=== PATIENT | male | born 1950 | race Caucasian/White ===

== ENCOUNTER 2016-10-21 12:14 | Inpatient (IN) | payer OTHER ==
--- NOTE | 2016-10-21 12:39 | CPEKG ---
Heart Rate: 69 RR Interval: 870 P-R Interval: 160 QRSD Interval: 90 QT Interval: 416 QTC Interval: 446 P [place]: 40 QRS [place]: 25 T Wave [place]: 34 EKG Severity - NORMAL ECG - EKG Impression: SINUS RHYTHM Electronically Signed By: David Anthony 21-Oct-2016 12:49:04
--- NOTE | 2016-10-21 13:10 | EDPHY ---
H & P Time Seen by Provider: 10/21/16 12:37 HPI/ROS: CHIEF COMPLAINT: Left-sided chest pain HISTORY OF PRESENT ILLNESS: Patient napoleon Welsh and arrived there a week ago Friday and his symptoms started on . He describes left chest pain which is worse with deep breathing and kept him awake last week on night. Symptoms are sharp and not associated with cough and have been up and down. Symptoms do not radiate. No rash. Associated last night with a headache and some myalgias. No cough or hemoptysis. REVIEW OF SYSTEMS: Eye: no change in vision ENT: no sore throat Cardiac: HPI Pulmonary: HPI, not short of breath Abdomen: no vomiting, diarrhea, abdominal pain Musculoskeletal: no back pain or leg swelling Skin: no rash Neuro: no headache Constitutional: no fever : no urinary symptoms A comprehensive 10 point review of systems is otherwise negative aside from elements mentioned in the history of present illness. PAST MEDICAL HISTORY: Negative Social history: Recent travel as outlined in the HPI, nonsmoker General Appearance: Alert and conversant, cooperative. Eyes: No scleral icterus. ENT, Mouth: Normal mucous membranes. Respiratory: Normal respiratory effort, breath sounds equal, lungs are clear to auscultation. Decreased breath sounds bilateral from splinting. Cardiovascular: Regular rate and rhythm. Gastrointestinal: Abdomen is soft and non tender. Neurological: Alert and oriented x3. Normally conversant. Face symmetric, normal movement and sensation in all extremities. Skin: Warm and dry, no rashes. Musculoskeletal: No peripheral edema and no joint swelling. No calf tenderness. Psychiatric: Not agitated. Emergency Department course/MDM: Pretest probability for pulmonary embolism is low, more likely to be pleurisy or musculoskeletal. Plan for D-dimer, chest x-ray of negative and CT angiography of positive. 1330: D-dimer greater than 11, CT angio discussed and consented. 1420: Reviewed CT with the patient including possible right-sided lung mass. IV heparin discussed and consented. After discussion with hospitalist in anticipation of possible bronchoscopy procedure will start with unfractionated heparin. Smoking Status: Former smoker Constitutional: Initial Vital Signs Temperature (C) 36.6 C 10/21/16 12:17 Heart Rate 88 10/21/16 12:17 Respiratory Rate 20 10/21/16 12:17 Blood Pressure 123/93 H 10/21/16 12:17 O2 Sat (%) 95 10/21/16 12:17 O2 Delivery Mode Room Air Allergies/Adverse Reactions: No Known Allergies Allergy (Verified 10/21/16 12:15) Home Medications: Medication Instructions Recorded NK [No Known Home Meds] 01/05/16 Medical Decision Making - Diagnostics EKG Interpretation: 12-lead EKG interpreted by me; official reading is in trace master. My interpretation is sinus rhythm rate 69 and normal intervals and no acute ischemic changes. Imaging Results: Imaging Impressions Chest/Thorax CTA 10/21/16 13:29 Impression: 1. Small to moderate volume of acute thrombopulmonary embolic disease. 2. 3.5-cm right middle lobe mass and numerous bilateral pulmonary nodules. Differential diagnosis includes primary non-small cell lung cancer of the right middle lobe with metastatic nodules in the right and left lung versus metastatic disease of unknown origin. 3. 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 4. 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 5. Small left pleural effusion and left basilar atelectasis. Findings discussed with Emergency Department physician, Dr. David Anthony on October 21, 2016 at 1416 hours. Differential Diagnosis: Differential diagnosis considered for chest pain including but not limited to myocardial ischemia, aortic dissection, pericarditis, pulmonary embolus, chest wall pain, pleural inflammation and pulmonary infectious causes. Consult/Admit Bed Type: [place] [id number] Critical Care Time: Critical care time spent by me, Dr. Anthony, exclusively with the care of this patient was 30 minutes, exclusive of PA or PASSENGER SERVICE SUPERVISOR time and exclusive of separate procedures. The organ system at risk was pulmonary and I ordered multiple diagnostic studies, intravenous heparin bolus and drip, hospitalist consultation ; to stabilize the patient and prevent worsening of the patient's condition. - Data Points Laboratory Results: Laboratory Results 10/21/16 12:31 10/21/16 12:31 10/21/16 10/21/16 10/21/16 12:31 12:31 12:31 WBC 6.47 10^3/uL 10^3/uL (3.80-9.50) RBC 4.88 10^6/uL 10^6/uL (4.40-6.38) Hgb 15.3 g/dL g/dL (13.7-17.5) Hct 44.9 % % (40.0-51.0) MCV 92.0 fL fL (81.5-99.8) MCH 31.4 pg pg (27.9-34.1) MCHC 34.1 g/dL g/dL (32.4-36.7) RDW 12.3 % % (11.5-15.2) Plt Count 314 10^3/uL 10^3/uL (150-400) MPV 10.4 fL fL (8.7-11.7) Neut % (Auto) 77.9 % H % (39.3-74.2) Lymph % (Auto) 15.3 % % (15.0-45.0) [place] % (Auto) 5.6 % % (4.5-13.0) Eos % (Auto) 0.5 % L % (0.6-7.6) Baso % (Auto) 0.2 % L % (0.3-1.7) Nucleat RBC Rel Count 0.0 % % (0.0-0.2) Absolute Neuts (auto) 5.05 10^3/uL 10^3/uL (1.70-6.50) Absolute Lymphs (auto) 0.99 10^3/uL L 10^3/uL (1.00-3.00) Absolute Monos (auto) 0.36 10^3/uL 10^3/uL (0.30-0.80) Absolute Eos (auto) 0.03 10^3/uL 10^3/uL (0.03-0.40) Absolute Basos (auto) 0.01 10^3/uL L 10^3/uL (0.02-0.10) Absolute Nucleated RBC 0.00 10^3/uL 10^3/uL (0-0.01) Immature Gran % 0.5 % % (0.0-1.1) Immature Gran # 0.03 10^3/uL 10^3/uL (0.00-0.10) PT Cancelled INR Cancelled APTT Cancelled D-Dimer Sodium 140 mEq/L mEq/L (134-144) Potassium 4.2 mEq/L mEq/L (3.5-5.2) Chloride 105 mEq/L mEq/L (97-110) Carbon Dioxide 27 mEq/l mEq/l (22-31) Anion Gap 8 mEq/L mEq/L (8-16) BUN 19 mg/dL mg/dL (7-23) Creatinine 1.0 mg/dL mg/dL (0.7-1.3) Estimated GFR > 60 Glucose 148 mg/dL H mg/dL (70-100) Calcium 9.0 mg/dL mg/dL (8.5-10.4) 10/21/16 12:31 WBC RBC Hgb Hct MCV MCH MCHC RDW Plt Count MPV Neut % (Auto) Lymph % (Auto) [place] % (Auto) Eos % (Auto) Baso % (Auto) Nucleat RBC Rel Count Absolute Neuts (auto) Absolute Lymphs (auto) Absolute Monos (auto) Absolute Eos (auto) Absolute Basos (auto) Absolute Nucleated RBC Immature Gran % Immature Gran # PT 14.2 SEC SEC (12.0-15.0) INR 1.11 (0.83-1.16) APTT 30.8 SEC SEC (23.0-38.0) D-Dimer 11.12 ug/mLFEU H ug/mLFEU (0.00-0.50) Sodium Potassium Chloride Carbon Dioxide Anion Gap BUN Creatinine Estimated GFR Glucose Calcium Medications Given: Discontinued Medications Heparin Sodium (Porcine) (Heparin Injection) 0 unit IVP EDNOW ONE PRN Reason: Protocol Stop: 10/21/16 14:22 Last Admin: 10/21/16 14:41 Dose: 4,900 units Heparin Sodium (Porcine) (Heparin 50 Units/Ml (Premix)) 500 mls @ 0 mls/hr IV EDNOW ONE; Per Protocol PRN Reason: Protocol Stop: 10/21/16 14:22 Last Admin: 10/21/16 14:51 Dose: 500 mls Departure - Departure Disposition: [facility] Inpatient Acute Clinical Impression: Pulmonary embolism Qualifiers: Pulmonary embolism type: other Chronicity: acute Acute cor pulmonale presence: without acute cor pulmonale Qualified Code(s): I26.99 - Other pulmonary embolism without acute cor pulmonale Condition: Good
[2016-10-21 13:16] LABS: % IMMATURE GRANULYOCYTES 0.5 % (0.0-1.1); ABSOLUTE IMMATURE GRANULOCYTES 0.03 10^3/uL (0.00-0.10); ADD DIFF? NO; ADD MORPH? NO; ADD SCAN? NO; ATYPICAL LYMPHOCYTE FLAG 0 (0-99); FRAGMENT RBC FLAG 0 (0-99); HEMATOCRIT 44.9 % (40.0-51.0); HEMOGLOBIN 15.3 g/dL (13.7-17.5); LEFT SHIFT FLG 0 (0-99); LIPEMIA HEMOLYSIS FLAG 90 (0-99); MEAN CELL HEMOGLOBIN 31.4 pg (27.9-34.1); MEAN CELL HEMOGLOBIN CONCENTR. 34.1 g/dL (32.4-36.7); MEAN PLATELET VOLUME 10.4 fL (8.7-11.7); PLATELET CLUMPS FLAG 0 (0-99); PLATELET COUNT 314 10^3/uL (150-400); RED BLOOD CELL COUNT 4.88 10^6/uL (4.40-6.38); RED CELL DISTRIBUTION WIDTH 12.3 % (11.5-15.2)
[2016-10-21 13:25] LABS: ANION GAP 8 mEq/L (8-16); CARBON DIOXIDE 27 mEq/l (22-31); CHLORIDE 105 mEq/L (97-110); GLOMERULAR FILTRATION RATE > 60; GLUCOSE 148 mg/dL (70-100); POTASSIUM 4.2 mEq/L (3.5-5.2); SODIUM 140 mEq/L (134-144)
[2016-10-21] MEDS ORDERED: IOPAMIDOL (ISOVUE 370) 100 ML BTL IV ONE (13:33)
[2016-10-21] MEDS ORDERED: HEPARIN/DEXTROSE 500 ML IV ONE (14:21)
[2016-10-21] MEDS ORDERED: HEPARIN 10,000 UNIT/10 ML MDV IVP ONE (14:21)
[2016-10-21 14:49] LABS: APTT 30.8 SEC (23.0-38.0); INR 1.11 (0.83-1.16); PROTIME(PATIENT) 14.2 SEC (12.0-15.0)
[2016-10-21] MEDS ORDERED: ONDANSETRON DISINTEGRATING 4 MG TAB PO PRN (15:22)
[2016-10-21] MEDS ORDERED: oxyCODONE IR 5 MG TAB PO PRN (15:22)
[2016-10-21] MEDS ORDERED: ONDANSETRON 4 MG/2 ML VIAL IVP PRN (15:22)
[2016-10-21] MEDS ORDERED: TEARS/DEXTRAN 70/HYPROMELLOSE 15 ML OPHT.BTL EACHEYE PRN (15:26)
--- NOTE | 2016-10-21 15:33 | PDGENHP ---
History and Physical - Chief Complaint Acute chest pain - History of Present Illness PCP: Dr. Schmidt HPI: 66-year-old male presenting with acute chest pain characterized as pleuritic, exacerbated by deep inspiration, associated with cough, headache, myalgias with onset of symptoms 5 days ago and duration persistent thereafter. Location is mostly in the right anterior chest. Prior to his onset of symptoms , the patient had otherwise been feeling well and he had been symptom free. He has been able to exert himself without any chest pain or shortness of breath and in fact 6 days prior to this presentation, the patient had been planting 400 lb trees with his . Of note, approximately 1 week ago the patient drove from [place] to [place] and then from [facility] to [place] where he stayed with some friends for several days before driving back from [place] to [place]. During that time, the patient began experiencing the after mentioned symptoms and he thought that he may be coming down with the flu. On the day of presentation, his symptoms have been escalating and he has sought medical attention. He otherwise denies any lower extremity edema, denies any hematochezia, denies melena, denies constipation, denies fevers chills or weight loss. History Information - Allergies/Home Medication List Allergies/Adverse Reactions: No Known Allergies Allergy (Verified 10/21/16 12:15) Home Medications: Beta-Carotene(A) W-C & E/Min [Ocuvite] 1 tab PO DAILY 10/21/16 [Last Taken 10/21] Herbals/Supplements -Info Only 1 ea PO DAILY 10/21/16 [Last Taken Unknown] Tears/Dextran 70/Hypromellose [Natural Balance Tears (*)] 1 drop EACHEYE DAILY PRN 10/21/16 [Last Taken 10/21/16] I have personally reviewed and updated: family history, medical history, social history, surgical history - Past Medical History Additional medical history: Irritable bowel syndrome approximately 20 years ago , self resolved - Surgical History Additional surgical history: Last colonoscopy was approximately 8 years ago and was reportedly normal - Family History Additional family history: Patient's sister recently from breast cancer, grandfather had stomach cancer, no family history of venous thromboembolism - Social History Smoking Status: Former smoker (For approximately 1 year in his 20s) Alcohol Use: Occasionally (No history of alcohol withdrawal) Drug Use: None Additional social history: Normally physically active male, independent in ADLs , retired from [employer] Review of Systems ROS: 10pt was reviewed & negative except for what was stated in HPI & below Cardiac: Reports: chest pain Respiratory: Reports: cough Muscolosketal: Reports: other (Myalgias) Physical Exam Temp Pulse Resp BP Pulse Ox 36.6 C 88 20 123/93 H 95 10/21/16 12:17 10/21/16 12:17 10/21/16 12:17 10/21/16 12:10/21/16 12:17 Constitutional: no apparent distress, appears nourished, not in pain Eyes: PERRL, anicteric sclera, EOMI Ears, Nose, Mouth, Throat: moist mucous membranes, hearing normal, ears appear normal, no oral mucosal ulcers Cardiovascular: regular rate and rhythym, no murmur, rub, or gallop, No edema Respiratory: reduced air movement (Right posterior segment in the inferior area) , rhonchi (On inspiration in the right mid posterior segment), No expiratory wheeze, No bronchial breath sounds, No respiratory distress Gastrointestinal: normoactive bowel sounds, soft, non-tender abdomen, no palpable masses Genitourinary: no bladder fullness, no bladder tenderness Neurologic: AAOx3, sensation intact bilaterally, No weakness Psychiatric: interacting appropriately, not anxious, not encephalopathic, thought process linear Lymph, Heme, Immunologic: other (Palpable, 1-2 cm anterior cervical lymph nodes and submandibular lymph nodes bilaterally, palpable less than 1 cm left supraclavicular lymph node) Lab Data & Imaging Review 10/21/16 12:31 10/21/16 12:31 WBC 6.47 10^3/uL (3.80-9.50) 10/21/16 12:31 RBC 4.88 10^6/uL (4.40-6.38) 10/21/16 12:31 Hgb 15.3 g/dL (13.7-17.5) 10/21/16 12:31 Hct 44.9 % (40.0-51.0) 10/21/16 12:31 MCV 92.0 fL (81.5-99.8) 10/21/16 12:31 MCH 31.4 pg (27.9-34.1) 10/21/16 12:31 MCHC 34.1 g/dL (32.4-36.7) 10/21/16 12:31 RDW 12.3 % (11.5-15.2) 10/21/16 12:31 Plt Count 314 10^3/uL (150-400) 10/21/16 12:31 MPV 10.4 fL (8.7-11.7) 10/21/16 12:31 Neut % (Auto) 77.9 % (39.3-74.2) H 10/21/16 12:31 Lymph % (Auto) 15.3 % (15.0-45.0) 10/21/16 12: [place] % (Auto) 5.6 % (4.5-13.0) 10/21/16 12: Eos % (Auto) 0.5 % (0.6-7.6) L 10/21/16 12: Baso % (Auto) 0.2 % (0.3-1.7) L 10/21/16 12: Nucleat RBC Rel Count 0.0 % (0.0-0.2) 10/21/16 12:31 Absolute Neuts (auto) 5.05 10^3/uL (1.70-6.50) 10/21/16 12: Absolute Lymphs (auto) 0.99 10^3/uL (1.00-3.00) L 10/21/16 12:31 Absolute Monos (auto) 0.36 10^3/uL (0.30-0.80) 10/21/16 12:31 Absolute Eos (auto) 0.03 10^3/uL (0.03-0.40) 10/21/16 12:31 Absolute Basos (auto) 0.01 10^3/uL (0.02-0.10) L 10/21/16 12:31 Absolute Nucleated RBC 0.00 10^3/uL (0-0.01) 10/21/16 12: Immature Gran % 0.5 % (0.0-1.1) 10/21/16 12: Immature Gran # 0.03 10^3/uL (0.00-0.10) 10/21/16 12:31 PT 14.2 SEC (12.0-15.0) 10/21/16 12:31 INR 1.11 (0.83-1.16) 10/21/16 12:31 APTT 30.8 SEC (23.0-38.0) 10/21/16 12:31 D-Dimer 11.12 ug/mLFEU (0.00-0.50) H 10/21/16 12:31 Sodium 140 mEq/L (134-144) 10/21/16 12:31 Potassium 4.2 mEq/L (3.5-5.2) 10/21/16 12:31 Chloride 105 mEq/L (97-110) 10/21/16 12:31 Carbon Dioxide 27 mEq/l (22-31) 10/21/16 12:31 Anion Gap 8 mEq/L (8-16) 10/21/16 12:31 BUN 19 mg/dL (7-23) 10/21/16 12:31 Creatinine 1.0 mg/dL (0.7-1.3) 10/21/16 12:31 Estimated GFR > 60 10/21/16 12:31 Glucose 148 mg/dL (70-100) H 10/21/16 12:31 Calcium 9.0 mg/dL (8.5-10.4) 10/21/16 12:31 Visualized and Interpreted imaging results: Yes Interpretation: Chest CT demonstrating moderate size right effusion with peripheral 3 x 3.5 cm mass, bilateral segmental pulmonary emboli Visualized and Interpreted EKG results: Yes EKG Interpretation: Positive for: other (Normal sinus rhythm) Assessment & Plan Assessment: 58-year-old male presents with acute bilateral pulmonary emboli and new diagnosis of lung mass with pleural effusion Plan: 1. Pulmonary emboli. Acute, new problem this provider, further workup indicated. D-dimer 11, subsegmental pulmonary emboli bilaterally on chest CT angiogram, most likely secondary to underlying malignancy and recent prolonged travel. -get lower extremity ultrasounds to evaluate for DVT and ongoing source -get trop/BNP to ensure no right heart strain necessitating Echo/RVSP measurement -discussed with Dr. David Anthony, we have agreed to place the patient on heparin drip so that it can be discontinued prior to diagnostic biopsy procedure -will most likely be transitioned to either Lovenox or DOAC prior to discharge 2. Suspected malignancy, lung mass. Acute, new problem this provider, further workup indicated. Peripheral lesion would be most readily accessed by CT- guided biopsy, per discussion with Dr. Balwinder Ram -patient has what appears to be lymphangitic spread on his chest CT, and it is possible that this is stage IV malignancy -will arrange for CT-guided biopsy through Radiology (Dr. Hernandez to perform in AM , holding hep gtt prior to procedure) -will perform staging CT of the abdomen and pelvis -have discussed with Dr. Puri, oncology consultation appreciated 3. Suspected malignant effusion. Acute, right side, most likely not contributing to patient's current symptoms and does not require therapeutic drainage at this time per conversation with Dr. Ram -if the patient requires therapeutic drainage in the future, can be pursued through Radiology Diet. Reg, NPO after MN Prophylaxis. High risk patient, heparin drip Code. Full Disposition. Anticipated discharge is 10/22/2016, pending further workup as outlined above. Greater than 70 minutes spent with patient, greater than 50% time spent counseling regarding the above as well as coordinating his care.
[2016-10-21 16:22] LABS: TROPONIN I < 0.012 ng/mL (0-0.034)
[2016-10-21] MEDS ORDERED: IOPAMIDOL (ISOVUE-300) 100 ML BTL IV ONE (17:55)
[2016-10-21] MEDS: ACETAMINOPHEN 325 MG TAB PO PRN (20:38)
[2016-10-21] MEDS: ACETAMN/DIPHENHYDRAMINE 500/25MG TAB PO PRN (20:48)
[2016-10-21] MEDS: HEPARIN 10,000 UNIT/10 ML MDV IVP PRN (21:29)
[2016-10-21 22:55] LABS: INR 1.15 (0.83-1.16); PROTIME(PATIENT) 14.6 SEC (12.0-15.0)
[2016-10-21 22:57] LABS: APTT 67.1 SEC (23.0-38.0)
[2016-10-22 03:58] LABS: % IMMATURE GRANULYOCYTES 0.6 % (0.0-1.1); ABSOLUTE IMMATURE GRANULOCYTES 0.03 10^3/uL (0.00-0.10); ADD DIFF? NO; ADD MORPH? NO; ADD SCAN? NO; ATYPICAL LYMPHOCYTE FLAG 0 (0-99); FRAGMENT RBC FLAG 0 (0-99); HEMATOCRIT 38.9 % (40.0-51.0); HEMOGLOBIN 13.4 g/dL (13.7-17.5); LEFT SHIFT FLG 0 (0-99); LIPEMIA HEMOLYSIS FLAG 90 (0-99); MEAN CELL HEMOGLOBIN 31.6 pg (27.9-34.1); MEAN CELL HEMOGLOBIN CONCENTR. 34.4 g/dL (32.4-36.7); MEAN CELL VOLUME 91.7 fL (81.5-99.8); MEAN PLATELET VOLUME 10.2 fL (8.7-11.7); PLATELET CLUMPS FLAG 0 (0-99); PLATELET COUNT 252 10^3/uL (150-400); RED BLOOD CELL COUNT 4.24 10^6/uL (4.40-6.38); RED CELL DISTRIBUTION WIDTH 12.5 % (11.5-15.2)
[2016-10-22 04:04] LABS: ALANINE AMINOTRANSFERASE 40 IU/L (21-72); ALBUMIN 2.9 g/dL (3.5-5.0); ALKALINE PHOSPHATASE 69 IU/L (38-126); ANION GAP 6 mEq/L (8-16); ASPARTATE AMINOTRANSFERASE 23 IU/L (17-59); BILIRUBIN,TOTAL 0.7 mg/dL (0.1-1.4); CALCIUM 8.3 mg/dL (8.5-10.4); CARBON DIOXIDE 23 mEq/l (22-31); CHLORIDE 110 mEq/L (97-110); GLOMERULAR FILTRATION RATE > 60; GLUCOSE 94 mg/dL (70-100); POTASSIUM 4.3 mEq/L (3.5-5.2); SODIUM 139 mEq/L (134-144); TOTAL PROTEIN 5.8 g/dL (6.3-8.2)
[2016-10-22 04:15] LABS: TROPONIN I < 0.012 ng/mL (0-0.034)
[2016-10-22] MEDS: HEPARIN/DEXTROSE 500 ML IV SCH (06:29)
[2016-10-22] MEDS ORDERED: Herbals/Supplements -Info Only PO SCH (09:00)
--- NOTE | 2016-10-22 09:10 | GCON ---
[f rep st] CONSULTATION MEDICAL ONCOLOGY CONSULTATION DATE OF CONSULTATION: 10/22/2016 REFERRING PHYSICIAN: Alfredo Page MD REASON FOR CONSULTATION: Right middle lobe lung mass with pleural effusion and multiple nodules in both lungs. RECOMMENDATIONS: 1. Agree with percutaneous biopsy of the 3.5 cm right middle lobe mass, which is fairly peripheral in nature. 2. If additional tissue is needed, there is a suspicious lymph node in his left supraclavicular are a that may be excised and sent for analysis. 3. Depending on the diagnosis, we will need to look for tank wagon driver mutations if this is a non-small shari l lung cancer. Specifically, would be looking for EGFR, ALK, ROS-1 mutations, as well as assessing his PD-L1 status to guide for future therapy. 4. I do an MRI of his brain for staging evaluation. 5. Check CEA. 6. Agree with treatment of his pulmonary emboli as you are doing. He will likely need long-term an ticoagulation because of his malignancy and the potentially life-threatening nature of his venous th romboembolism and pulmonary embolism. 7. Further treatment options will be discussed with the patient once additional staging and tissue diagnosis is obtained. 8. PET-CT scan as an outpatient for staging. ASSESSMENT: This 66-year-old white male was in his usual state of health until a week or so prior t o admission. He and his went on a long car trip from here to [place], where they have a home and then to [place] to visit friends. On the way back, he began to have pleuritic chest pain, and not feel well. He said he could not get comfortable. Upon his return home, he sought medical atten tion with his primary care physician, Dr. Schmidt. Because of his symptoms, he underwent further eval uation and was found to have bilateral lower extremity DVTs and pulmonary emboli. In addition, he w as found to have a 3.5 cm mass in the right middle lobe, as well as a fairly large right pleural eff usion, and a small left pleural effusion. The 3.5 cm mass in the right middle lobe is very peripher al and we biopsied that today. We do not have a tissue diagnosis yet. Of note, on his CT scan ther e is concern for lymphangitic spread and multiple nodules in both lungs. The patient has had no capital B symptoms. He does have a minor smoking history for approximately 1 -1/2 years. 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 The most likely diagnosis at this time is a non-small cell carcinoma of the right lung. This will n eed to be proven with biopsy; however. Other possibilities exist including lymphoma, melanoma, etc. ; however, I think these are much less likely. If this does returns supervisor to be non-small cell carcinoma of the lung, the question will be whether he has a tank wagon driver mutation or not, to see if he is eligible for targeted therapy or to see whether he has PD-L1 positivity. If he does have PD-L1 positivity, then he may be a candidate for primary therapy with either Keytruda or Opdivo. I did discuss with the patient that this may indeed be stage IV disease based on his current CT. I do not yet have a good handle on prognosis, because I think there is too much information still up i n the air. In addition for staging purposes, he will need an MRI of his brain and PET-CT scan. The PET-CT scan will likely occur as an outpatient. HISTORY OF PRESENT ILLNESS: Please see assessment. PAST MEDICAL HISTORY: Fairly unremarkable otherwise. He did have irritable bowel syndrome approxim ately 20 years ago, which has not been an issue recently. SURGICAL HISTORY: Fairly unremarkable. He apparently did have a colonoscopy approximately 8 years ago. FAMILY HISTORY: Remarkable for breast cancer, as well as gastric cancer. There is no family histor y of VTE. SOCIAL HISTORY: The patient drinks alcohol occasionally. 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 REVIEW OF SYSTEMS: Remarkable for pleuritic chest pain, shortness of breath, generalized discomfort . He has had no capital B symptoms. He reports no nausea or vomiting. Reports no unusual masses o r lymphadenopathy. Ten systems reviewed otherwise unremarkable. PHYSICAL EXAMINATION: GENERAL: Reveals an alert, oriented, white male, in no acute distress. HEEN T: Shows that he does have a 0.5 cm firm mobile lymph node in his left supraclavicular area that is suspicious. LUNGS: Show diminished breath sounds at the bases. CARDIAC: Shows regular rhythm. ABDOMEN: Shows active bowel sounds. No obvious hepatosplenomegaly is noted. He has a soft abdomen . Peripheral LYMPH NODE EXAM IN ADDITION TO HIS LEFT NECK: Shows no significant palpable adenopath y in his axilla bilaterally, as well as he does have normal shotty lymph nodes in his groin bilatera lly. EXTREMITIES: He has no calf tenderness or swelling bilaterally. LABORATORY EXAM: CBC shows a white count of 5.23 with a hemoglobin of 13.4, and a platelet count of 252,000. His chemistries show a low albumin of 2.9, and total protein of 5.8, creatinine normal at 1.0, and sodium of 139. His alkaline phosphatase is normal at 69. His SGOT and SGPT are normal. Total bilirubin is normal at 0.7. Thank you very much for allowing us to participate in this pleasant gentleman's workup and care. We look forward to assisting with his management during the hospitalization and an afterwards. /[id number]/MODL
[2016-10-22] MEDS ORDERED: NALOXONE HCL 0.4 MG/ML INJ ONE (10:48)
[2016-10-22] MEDS ORDERED: FLUMAZENIL 0.5 MG/5 ML MDV IVP ONE (10:48)
[2016-10-22] MEDS ORDERED: MIDAZOLAM 2 MG/2 ML VIAL ONE (10:49)
[2016-10-22] MEDS ORDERED: fentaNYL 100 MCG/2 ML INJ ONE (10:49)
[2016-10-22] MEDS: PRESERVISION AREDS2 FORMULA EYE VIT 1 EACH PO SCH (13:40)
[2016-10-22] MEDS ORDERED: GADOBUTROL 10 ML VIAL IVP ONE (14:18)
[2016-10-22] MEDS: ACETAMINOPHEN 325 MG TAB PO PRN ×2 (14:31→18:16)
--- NOTE | 2016-10-22 14:32 | POSTOPPROG ---
Post Op Note Date of Operation: 10/22/16 Surgeon: Nilay Allred Anesthesia: IV Sedation Pre-op Diagnosis: Pulmonary embolism. Pulmonary masses Post-op Diagnosis: same Indication: Hypoxia Procedure: 1. CT-guided lung biopsy 2.right thoracentesis Findings: 1. Adequate sample 2. 1.4 liters evacuated from right pleural space Inf/Abcess present in the surg proc area at time of surgery?: No EBL: Minimal Complications: No pneumothorax. Specimen(s): 1. 20 gauge cores and 22 ga FNAB 2. 1.4 liters caden fluid from right pleural space.
[2016-10-22] MEDS: HEPARIN 10,000 UNIT/10 ML MDV IVP PRN (16:42)
--- NOTE | 2016-10-22 19:01 | HOSPPROG ---
Hospitalist Progress Note Assessment/Plan: DIAGNOSES: 1- ACUTE PULMONARY EMBOLISM AND DVT; NO SIGN OF HEMODYNAMIC INSTABILITY 2- LUNG MASSES, SUSPICIOUS FOR MALIGNANCY The patient is remaining stable so far form maliganancy standpoint. He has now gone to radiology for lung biopsy, and will need to await results from that. Hopefully can begin treatment promptly once diagnosis known. PLANS: -continue anticoagulation -close monitor or hemodynamic and pulm fxn -await lung bx results SUBJECTIVE: feels somewhat better w decrease in pain no bleeding not dyspneic in bed OBJECTIVE: vitals stable exam: alert oriented relaxed skin warm dry good color no sign of bleeding lungs clear, resps relaxed heart reg no edema abd soft nondistended nontender CT scan of abdomen, I have reviewed images and radiology report: No sign of malignancy, a renal cyst and likely hepatic angioma present. US of legs: some DVT present Objective: Vital Signs Temp Pulse Resp BP Pulse Ox 36.3 C 64 19 119/76 95 10/22/16 18:07 10/22/16 18:07 10/22/16 18:07 10/22/16 18:07 10/22/16 18:07 Microbiology 10/22/16 12:50 Gram Stain - Final Pleural Fluid - Aspirate Laboratory Results 10/22/16 03:35 10/22/16 03:35 10/21/16 10/22/16 10/23/16 06:59 06:59 06:59 Intake Total 250 Output Total 1400 Balance -1150 PT 14.6 SEC (12.0-15.0) 10/21/16 20:45 INR 1.15 (0.83-1.16) 10/21/16 20:45 ICD10 Worksheet Patient Problems: Problems Problem Status Onset Pulmonary embolism Acute
[2016-10-22] MEDS: ACETAMN/DIPHENHYDRAMINE 500/25MG TAB PO PRN (22:39)
[2016-10-23] MEDS: HEPARIN/DEXTROSE 500 ML IV SCH ×2 (04:34→17:01)
[2016-10-23] MEDS: PRESERVISION AREDS2 FORMULA EYE VIT 1 EACH PO SCH (09:20)
--- NOTE | 2016-10-23 12:33 | SOAPPROG ---
JUSTO Progress Note Assessment/Plan: Assessment: - Lung mass - Very concerning for primary lung CA. His CEA is elevated at 197. This suggests adenoCA. DDx includes primary lung CA vs. metastatic disease from other primary adenoCA (GI, pancreas, etc.). Biopsies should be out tomorrow after special stains. If malignancy is confirmed, he will need a staging PET/CT as an outpatient. - PE/DVT - as long as bx is adequate for diagnosis, I wouldn't plan on any additional invasive diagnostic procedures. I would favor anticoagulation with one of the NOAC medications such as Xarelto Discussed in depth with patient and . Plan: - check bx/cytology results when available - Xarelto when we are sure bx is adequate - PET/CT as an outpatient approximately 40 min spent is data collection/discussion with patient and at the bedside/care coordination. Subjective: Less SOB after thoracentesis. Objective: Vital Signs Temp Pulse Resp BP Pulse Ox 36.6 C 65 18 125/77 H 93 10/23/16 08:00 10/23/16 08:00 10/23/16 08:00 10/23/16 08:00 10/23/16 08:00 10/21/16 10/22/16 10/23/16 23:59 23:59 23:59 Intake Total 708 Output Total 700 Balance 8 PT 14.6 SEC (12.0-15.0) 10/21/16 20:45 INR 1.15 (0.83-1.16) 10/21/16 20:45 Physical Exam - Physical Exam General Appearance: alert, mild distress ICD10 Worksheet Patient Problems: Problems Problem Status Onset Pulmonary embolism Acute
--- NOTE | 2016-10-23 18:13 | HOSPPROG ---
Hospitalist Progress Note Assessment/Plan: TOTAL TIME OF THIS BEDSIDE VISIT WITH THE PATIENT AND HIS TODAY 55 MINUTES WITH GREATER THAN 55% OF THAT IN DISCUSSION AND COUNSELING DIAGNOSES: 1- ACUTE PULMONARY EMBOLISM AND DVT; NO SIGN OF HEMODYNAMIC INSTABILITY 2- LUNG MASSES, SUSPICIOUS FOR MALIGNANCY; 3- s/p PENDING NEEDLE LUNG BIOSPY IN CT ON 10/22 4- no signs of malignancy on CT scan of abdomen pelvis or MRI of brain The patient is remaining stable so far from a hemodynaomic and respiratory standpoint. The patient and his had significant concerns about his diagnosis and the approach to evaluating his diagnosis and communicating information to him and his . Their questions about seeking 2nd opinions, how long he would need to stay in the hospital, an override of other issues around his illness and diagnosis. I had a lengthy conversation and answered all these questions as best I could for them. Dr. Puri was present for part of this conversation and participated as well in the same conversation. PLANS: -continue anticoagulation -it is anticipated that he will get some biopsy result 10/24 or less likely 10/25 -if he remains stable he may be able to discharge and follow up in oncology clinic for further assessment and treatment planning -he would need outpt PET scan -in terms of anticoagulation would use a Direct Acting Oral anticoagulant at [facility] SUBJECTIVE: still some chest pain, not short of breath or lightheaded no bleeding OBJECTIVE: vitals stable exam: alert oriented relaxed skin warm dry good color no sign of bleeding lungs clear, resps relaxed heart reg no edema abd soft nondistended nontender MRI scan of brain, my review and interpretation of images; no evidence of malignancy in the brain or other cranial structures Objective: Vital Signs Temp Pulse Resp BP Pulse Ox 36.6 C 65 18 125/77 H 93 10/23/16 08:00 10/23/16 08:00 10/23/16 08:00 10/23/16 08:00 10/23/16 08:00 10/22/16 10/23/16 10/24/16 06:59 06:59 06:59 Intake Total 708 Output Total 700 Balance 8 PT 14.6 SEC (12.0-15.0) 10/21/16 20:45 INR 1.15 (0.83-1.16) 10/21/16 20:45 ICD10 Worksheet Patient Problems: Problems Problem Status Onset Pulmonary embolism Acute
[2016-10-23] MEDS: ACETAMN/DIPHENHYDRAMINE 500/25MG TAB PO PRN (21:12)
[2016-10-24] MEDS: HEPARIN/DEXTROSE 500 ML IV SCH (08:48)
[2016-10-24] MEDS: PRESERVISION AREDS2 FORMULA EYE VIT 1 EACH PO SCH (10:47)
[2016-10-24 11:31] VITALS: BP 124/76; PULSE 73; RESP 21; TEMP 98.2; O2SAT 96
--- NOTE | 2016-10-24 12:23 | SOAPPROG ---
JUSTO Progress Note Assessment/Plan: Assessment: - Lung mass - I spoke with the pathologist this AM. His biopsy and cytology are consistent with a primary adenoCA of the Lung (TTF-1 positive). - PE/DVT - as long as bx is adequate for diagnosis, I wouldn't plan on any additional invasive diagnostic procedures. I would favor anticoagulation with one of the NOAC medications such as Xarelto Discussed in depth with patient and . Plan: - Xarelto when we are sure bx is adequate - PET/CT as an outpatient - Send biopsy material for LungSEQ and PD-L1 analysis to determine appropriateness for targeted therapy/immunotherapy/clinical trial (we will take care of this from the office. - follow up with me next week after PET/CT approximately 35 min spent is data collection/discussion with patient and at the bedside/care coordination. Subjective: No new complaints today. Looking forward to going home Objective: Vital Signs Temp Pulse Resp BP Pulse Ox 36.8 C 73 21 H 124/76 H 96 10/24/16 11:30 10/24/16 11:30 10/24/16 11:30 10/24/16 11:30 10/24/16 11:30 Laboratory Results 10/24/16 06:19 10/22/16 10/23/16 10/24/16 23:59 23:59 23:59 Intake Total 708 430 Output Total 700 Balance 8 430 PT 14.6 SEC (12.0-15.0) 10/21/16 20:45 INR 1.15 (0.83-1.16) 10/21/16 20:45 Physical Exam - Physical Exam General Appearance: alert, no apparent distress Neuro/Psych: normal mood/affect ICD10 Worksheet Patient Problems: Problems Problem Status Onset Pulmonary embolism Acute
[2016-10-24] MEDS ORDERED: RIVAROXABAN 15 MG TAB PO ONE (14:28)
--- NOTE | 2016-10-24 14:28 | PDDCSUM ---
Discharge Summary Discharge Summary: DISCHARGE SUMMARY FOLLOW-UP ITEMS: Tumor markers sent for adenocarcinoma DATE OF ADMISSION: 10/21/2016 DATE OF DISCHARGE: 10/24/2016 DISCHARGE DIAGNOSES: 1. New diagnosis of adenocarcinoma, lung primary 2. Acute pulmonary emboli, POA 3. Acute deep venous thrombosis bilaterally, POA 4. Malignant effusion, right-sided CONSULTATIONS: Hematology Oncology PROCEDURES / IMAGING: Right lung biopsy, lower extremity ultrasounds demonstrating right-sided coronal and left-sided tibial clots, CT angiograms demonstrating right-sided small volume pulmonary emboli with right-sided 3 x 3.5 cm and possible lymphangitic spread CHIEF COMPLAINT: Acute pleuritic chest discomfort SUBJECTIVE: Patient is feeling well at time of discharge, he is are processing the diagnosis PHYSICAL EXAM ON DISCHARGE: Systolic blood pressure is 120, heart rate 80, afebrile overnight, satting on room air, alert awake oriented x3 LABS ON DISCHARGE: CEA 197, TTF-1 positive HOSPITAL COURSE BY PROBLEM: 1. Adenocarcinoma, lung primary. TTF-1 positive, right lung, with lymphangitic spread, unclear stage, getting PET scan as an outpatient next week with follow up with Dr. Puri. Further tumor markers have been sent to help guide treatment. Patient and may pursue additional therapeutic opinions after they received next weeks staging information. 2. Acute pulmonary embolism. Present on admission, right-sided, potentially causing his pleuritic chest discomfort, placed on heparin drip given his lung biopsy, no bleeding after biopsy after he was placed back on heparin drip. Be transitioned to Xarelto prior to discharge and will most likely continue anticoagulation during his treatment for malignancy. Risks of bleeding discussed with patient and . All anticoagulation options were shared with the patient's and they chose this DOAC. 3. Acute deep venous thrombosis. Present on admission, lower extremity ultrasound demonstrating clot in the right parietal, left tibial, most likely source of pulmonary embolism. Patient is predisposed to venous thromboembolism given his underlying malignancy and he recently completed a road trip. He does not require lytic therapy or IVC. Will be on systemic anticoagulation as outlined above. If he does experience lower extremity edema, recommended compression stockings. Further activity recommendations will be at the discretion of his primary care provider. 4. Malignant effusion. Patient has some right-sided malignant effusion present on CT imaging, not symptomatic or significant enough to warrant thoracentesis. DISCHARGE MEDICATIONS: Please see official discharge medication reconciliation sheet in chart , Xarelto 15 mg twice daily for 3 weeks, then 20 mg thereafter, avoid nonsteroidal anti-inflammatory medications, Tylenol as needed for pain control. DISCHARGE INSTRUCTIONS: Patient should follow up with Dr. Puri and have a PET scan performed next week. Should follow up regularly with his primary care provider. TIME SPENT: Greater than 30 minutes were spent on direct patient care, as well as discharge planning and preparation.
== END 2016-10-24 15:33 | disposition home or self-care (01) | DRG 176 ==
LOC: INTOOBSV 14:21 → F3E 15:39 → OBSVTOIN 10-22 20:49
PROVIDERS: ADMIT Internal Medicine; ATTEND Internal Medicine
PROC: 0W993ZX Drainage of Right Pleural Cavity, Percutaneous Approach, Diagnostic (ICD-10-PCS; principal; 2016-10-22)
PROC: 0BBD3ZX Excision of Right Middle Lung Lobe, Percutaneous Approach, Diagnostic (ICD-10-PCS; principal; 2016-10-22)
DX: I26.99 Other pulmonary embolism without acute cor pulmonale (principal); C34.2 Malignant neoplasm of middle lobe, bronchus or lung; I82.442 Acute embolism and thrombosis of left tibial vein; I82.491 Acute embolism and thrombosis of other specified deep vein of right lower extremity; J91.0 Malignant pleural effusion
CPT/HCPCS: 85520-90; 96374; A9585; G0378; J1644; J2250; J2310; J3010; Q9967

== ENCOUNTER → 2016-10-25 | Outpatient (CLI) | payer OTHER | LOC: FIMAGING 14:31 | PROVIDERS: ATTEND Internal Medicine | DX: R06.02 Shortness of breath (principal); J90 Pleural effusion, not elsewhere classified; C34.90 Malignant neoplasm of unspecified part of unspecified bronchus or lung ==

== ENCOUNTER 2016-12-12 10:09 | Emergency (ER) | payer OTHER ==
[2016-12-12 10:17] VITALS: RESP 18
--- NOTE | 2016-12-12 10:48 | CPEKG ---
Heart Rate: 73 RR Interval: 822 P-R Interval: 168 QRSD Interval: 96 QT Interval: 400 QTC Interval: 441 P [place]: -18 QRS [place]: 43 T Wave [place]: 30 EKG Severity - OTHERWISE NORMAL ECG - EKG Impression: SINUS RHYTHM Electronically Signed By: Omer Read 12-Dec-2016 10:57:39
[2016-12-12 10:50] LABS: % IMMATURE GRANULYOCYTES 0.7 % (0.0-1.1); ABSOLUTE IMMATURE GRANULOCYTES 0.03 10^3/uL (0.00-0.10); ADD DIFF? NO; ADD MORPH? NO; ADD SCAN? NO; ATYPICAL LYMPHOCYTE FLAG 50 (0-99); FRAGMENT RBC FLAG 0 (0-99); HEMATOCRIT 44.3 % (40.0-51.0); HEMOGLOBIN 15.3 g/dL (13.7-17.5); LEFT SHIFT FLG 0 (0-99); LIPEMIA HEMOLYSIS FLAG 90 (0-99); MEAN CELL HEMOGLOBIN 30.6 pg (27.9-34.1); MEAN CELL HEMOGLOBIN CONCENTR. 34.5 g/dL (32.4-36.7); MEAN CELL VOLUME 88.6 fL (81.5-99.8); PLATELET CLUMPS FLAG 0 (0-99); PLATELET COUNT 242 10^3/uL (150-400); RED CELL DISTRIBUTION WIDTH 12.5 % (11.5-15.2)
--- NOTE | 2016-12-12 10:57 | EDPHY ---
H & P Stated Complaint: Low grade fever;feels more SOB;hx lung CA;just started keytruda Source: Patient - Personal History Current Tetanus Diphtheria and Acellular Pertussis (TDAP): Yes - Medical/Surgical History Hx Asthma: No Hx Chronic Respiratory Disease: No Hx Diabetes: No Hx Cardiac Disease: No Hx Renal Disease: No Hx Cirrhosis: No Hx Alcoholism: No Hx HIV/AIDS: No Hx Splenectomy or Spleen Trauma: No Other PMH: lung CA - Social History Smoking Status: Never smoked HPI/ROS: CHIEF COMPLAINT: Shortness of breath, fever HISTORY OF PRESENT ILLNESS: Patient complains of increasing shortness of breath over the past 2-3 days. Gradual onset, constant duration. Moderate to severe at times. Minimal cough. Worse when supine. Some improvement rest and when sitting up. Also reports subjective fever, T-max of 99.4. Has a history of right-sided primary adenocarcinoma diagnosed in September. He received his 1st chemotherapy treatment 2 and half weeks ago. This is a once every 3 week dosing. He has no chest pain. No abdominal urinary complaints. No rashes or lesions. No other associated complaints or modifying factors. He does not require supplemental oxygen at home at this time REVIEW OF SYSTEMS: Ten systems reviewed and are negative unless otherwise noted in the HPI PERTINENT MEDICAL HISTORY: Right-sided primary adenocarcinoma of the lung SOCIAL HISTORY: Nonsmoker. EXAMINATION General Appearance: Alert, no distress Head: normocephalic, atraumatic Eyes: Pupils equal and round, no conjunctival pallor or injection ENT, Mouth: Mucous membranes moist. Uvula midline. No erythema or edema. Neck: Normal inspection, supple, non-tender Respiratory: Diminishment on the right side. Mild crackles at the base on the right. Mild rhonchi on the left. No wheezing. No retractions or distress. Cardiovascular: Regular rate and rhythm. No murmur. Pulses intact distally. Gastrointestinal: Abdomen is soft and nontender Back: non-tender, no bony abnormalities Neurological: GCS 15. A&O, nonfocal, normal gait Skin: Warm and dry, no rash Extremities: Nontender, no pedal edema Psychiatric: Mood and affect normal DIFFERENTIAL DIAGNOSES: Including but not limited to pleural effusion, pneumonia, CHF, PE, sepsis MDM: 10:30 a.m. Increasing shortness of breath with intermittent subjective fever, no chest pain. Vital signs are stable here. Given his immune-compromised status I have ordered blood cultures, lactic acid and chest x-ray. He does not require supplemental oxygen at this time. 11:20 a.m. CBC is unremarkable. INR is elevated at 3.4. Chest x-ray as read by me reveals significant right-sided pleural effusion. Chemistry is pending at this time. He remains comfortable in no acute distress. 11:35 a.m. Chemistry returns with minimal abnormalities. Glucose is slightly elevated. Sodium is within normal limits. BNP is mildly elevated. 12:00 p.m. Chest x-ray has been read as a large right pleural effusion no pneumonia. I have re-evaluated the patient. He remains awake and alert, no acute distress. Vital signs are stable. 94-100% oxygenation on room air. No respiratory distress. He has been evaluated by Dr. Read. Dr. Read has discussed the case with Interventional Radiology. Due to the Xarelto, he is not a candidate for thoracentesis today. He is a candidate for therapeutic thoracentesis tomorrow however. I discussed this with the patient he is comfortable with being discharged home with outpatient appointment tomorrow. We have discussed with the nurse oil field caser, and they are assisting with an appointment tomorrow for outpatient therapeutic thoracentesis. He will be discharged home stable condition to follow up for the outpatient thoracentesis tomorrow. He is to contact his primary care physician and oncologist for further care. He is comfortable with this plan and discharged home in stable condition. SUPERVISION: Patient was evaluated in conjunction with the supervising physician. Please see their note for details. (Lucas José) Constitutional: Initial Vital Signs Temperature (C) 98.1 F 12/12/16 10:11 Heart Rate 64 12/12/16 10:11 Respiratory Rate 18 12/12/16 10:11 Blood Pressure 90/65 L 12/12/16 10:11 O2 Sat (%) 98 12/12/16 10:11 O2 Delivery Mode Room Air Allergies/Adverse Reactions: No Known Allergies Allergy (Verified 12/12/16 10:17) Home Medications: Medication Instructions Recorded Beta-Carotene(A) W-C & E/Min 1 tab PO DAILY 10/21/16 [Ocuvite] Herbals/Supplements -Info Only 1 ea PO DAILY 10/21/16 Tears/Dextran 70/Hypromellose 1 drop EACHEYE DAILY PRN 10/21/16 [Natural Balance Tears (*)] Acetaminophen [Tylenol 325mg (*)] 650 mg PO Q4HRS PRN #0 tab 10/24/16 Rivaroxaban [Xarelto] 20 mg PO DAILY #30 tablet 10/24/16 Pembrolizumab [Keytruda] 100 mg IV 12/12/16 Medical Decision Making - Diagnostics EKG Interpretation: EKG: Complete interpretation has been separately recorded in the [facility] archive. Summary impression: Sinus rhythm (Oemr Read) Other Provider: Independent physician documentation I evaluated and participated in the management of the patient. I also evaluated the patient independently. My co-signature indicates that I have reviewed this chart and I agree with the findings and plan of care as documented. My personal H&P findings include: The patient presents to the ED with symptoms of dyspnea and low-grade fever. The patient was diagnosed with a lung cancer earlier this year. The patient was also diagnosed with pulmonary embolism at that time. The patient is currently receiving oral chemotherapy. He is currently anticoagulated with Xarelto. The patient was noted to be hemodynamically stable and afebrile. The patient did have a chest x-ray which demonstrates a significant increase in his right pleural effusion. The patient is currently hemodynamically stable and without evidence of sepsis. Because the patient is currently anticoagulated he cannot undergo a therapeutic thoracentesis today. I did discuss the case with Dr. Nilay Allred from Radiology who will be happy to perform this procedure is an outpatient tomorrow. The patient will hold his next dose of Xarelto. The patient is instructed to hold Xarelto, contact interventional radiology for thoracentesis scheduling tomorrow. The patient does understand return to the ED immediately for high fever, difficulty breathing, weakness, worsening symptoms or other acute concerns. (Omer Read) - Data Points Laboratory Results: Laboratory Results 12/12/16 10:35 12/12/16 10:35 Departure - Departure Disposition: Home, Routine, Self-Care Clinical Impression: Malignant pleural effusion Dyspnea Qualifiers: Dyspnea type: shortness of breath Qualified Code(s): R06.02 - Shortness of breath Adenocarcinoma, lung Qualifiers: Laterality: right Qualified Code(s): C34.91 - Malignant neoplasm of unspecified part of right bronchus or lung Condition: Good Instructions: Pleural Effusion (ED) Additional Instructions: 1. Return to the ED for markedly worsening symptoms, high fever, difficulty breathing or other concerns. 2. Please follow up as scheduled with interventional radiology for the procedure to drain the recurrent fluid on your right lung. 3. Please follow up with your oncologist as scheduled. 4. Please hold Xarelto as directed in anticipation of the procedure tomorrow to drain the fluid on your lung. Referrals: Dariela Schmidt MD [Primary Care Provider] - As per Instructions Boogie Denney MD [Medical Doctor] - As per Instructions
[2016-12-12 11:01] LABS: INR 3.48 (0.83-1.16); PROTIME(PATIENT) 35.5 SEC (12.0-15.0)
[2016-12-12 11:02] LABS: ANION GAP 9 mEq/L (8-16); APTT 44.1 SEC (23.0-38.0); CALCIUM 8.7 mg/dL (8.5-10.4); CARBON DIOXIDE 22 mEq/l (22-31); CHLORIDE 105 mEq/L (97-110); CREATININE 1.2 mg/dL (0.7-1.3); GLOMERULAR FILTRATION RATE > 60; GLUCOSE 133 mg/dL (70-100); POTASSIUM 4.4 mEq/L (3.5-5.2); SODIUM 136 mEq/L (134-144)
[2016-12-12 12:13] VITALS: BP 112/80; PULSE 74; TEMP 98.4; O2SAT 92
== END 2016-12-12 12:16 | disposition home or self-care (01) ==
DX: C34.91 Malignant neoplasm of unspecified part of right bronchus or lung (principal); J90 Pleural effusion, not elsewhere classified; Z79.01 Long term (current) use of anticoagulants

== ENCOUNTER → 2016-12-13 | Outpatient (CLI) | payer OTHER ==
[~2016-12-13] MED LIST: LIDOCAINE 1% 300 MG/30 ML SDV ONE
== END ==
LOC: FIMAGING 12:57
PROVIDERS: ATTEND Radiology Diagnostic Radiology
PROC: 0W993ZZ Drainage of Right Pleural Cavity, Percutaneous Approach (ICD-10-PCS; principal; 2016-12-13)
DX: J90 Pleural effusion, not elsewhere classified (principal); C34.90 Malignant neoplasm of unspecified part of unspecified bronchus or lung

== ENCOUNTER → 2016-12-18 | Outpatient (CLI) | payer OTHER | LOC: FIMAGING 12:11 | PROC: 0W9930Z Drainage of Right Pleural Cavity with Drainage Device, Percutaneous Approach (ICD-10-PCS; principal; 2016-12-18) | DX: C34.2 Malignant neoplasm of middle lobe, bronchus or lung (principal); J91.0 Malignant pleural effusion ==